=== PATIENT | female | born 1975 | race Caucasian/White ===

== ENCOUNTER → 2019-04-02 | Outpatient (CLI) | payer OTHER ==
[~2019-04-02] MED LIST: FLUO10; Lisinopril2.5 MG; Zithromax250 MG PO
[2019-04-04 15:06] LABS: HPV 16 Negative (Negative); HPV 18 Negative (Negative); HPV OTHER HR TYPES Negative (Negative)
== END | disposition home or self-care (01) ==
LOC: LAB 14:08 → LAB SHORT 14:08
PROVIDERS: Family Medicine
DX: Z12.4 Encounter for screening for malignant neoplasm of cervix (principal)
CPT/HCPCS: 87624; G0123

== ENCOUNTER 2019-04-14 08:30 | Day surgery (SDC) | payer OTHER, SELFPAY | END 2019-04-14 22:37 | disposition home or self-care (01) | LOC: MOI US 08:30 → MOI MAM 08:45 → MOI US 22:37 | PROC: 0HBT3ZX Excision of Right Breast, Percutaneous Approach, Diagnostic (ICD-10-PCS; principal; 2019-04-14) | DX: N61.0 Mastitis without abscess (principal) | CPT/HCPCS: 19083; 77065; 88305; A4648 ==

== ENCOUNTER → 2019-04-23 | Outpatient (CLI) | payer OTHER | END | disposition home or self-care (01) | LOC: LAB SHORT 13:17 → LAB 13:17 | DX: N61.0 Mastitis without abscess (principal) | CPT/HCPCS: 87070; 87075; 87076; 87205 ==

== ENCOUNTER → 2024-06-17 | Outpatient (CLI) | payer OTHER ==
[2024-06-30 07:36] LABS: HPV HIGH RISK BY TMA Not Detected; HPV SOURCE Cervical
== END ==
LOC: LAB SHORT 16:35 → LAB 16:35
PROVIDERS: Family Medicine
DX: Z01.419 Encounter for gynecological examination (general) (routine) without abnormal findings (principal)
CPT/HCPCS: 87624; G0123

== ENCOUNTER → 2024-08-22 | Outpatient (CLI) | payer OTHER | END | disposition home or self-care (01) | LOC: PLD 13:21 → LAB SHORT 13:21 → LAB 13:21 | DX: N93.9 Abnormal uterine and vaginal bleeding, unspecified (principal) | CPT/HCPCS: 88305 ==